=== PATIENT | female | born 1995 | race Caucasian/White ===

== ENCOUNTER → 2016-08-07 | Outpatient (CLI) | payer BC ==
[2016-08-11 13:39] LABS: CHLAMYDIA TRACH RNA*** NOT DETECTED (NOT DETECTED); GC (NEIS GONORRHOEAE)RNA** NOT DETECTED (NOT DETECTED); TRICHOMONAS VAGINALIS RNA** NOT DETECTED (NOT DETECTED)
== END | disposition home or self-care (01) ==
LOC: C.LABSPEC 16:54
PROVIDERS: ATTEND Obstetrics & Gynecology
DX: N94.9 Unspecified condition associated with female genital organs and menstrual cycle (principal)

== ENCOUNTER 2016-12-23 22:43 | Emergency (ER) | payer BC ==
[~2016-12-23] VITALS: Ht 160 cm; Wt 45.9 kg
[2016-12-23 22:45] VITALS: TEMP 36.9; Ht 160 cm; Wt 45.9 kg
[2016-12-23] MEDS ORDERED: LIDOCAINE HCL 2% VISC SOLN 20 ML UDC PO STA (22:58)
[2016-12-23] MEDS ORDERED: ALUMINUM/MAGNESIUM SUSP 30 ML UDC PO STA (22:58)
[2016-12-23 23:16] LABS: BASO % 0.4 %; BASO ABS # 0.03 K/uL (0-0.2); COMPLETE YES; EOS % 4.1 %; HEMATOCRIT 41.5 % (37-47); IG% 0.1 %; LYMPH % 45.1 %; LYMPH ABS # 3.23 K/uL (1.2-3.4); MEAN CELL VOLUME 91.4 fL (80-100); MEAN CORPUSCULAR HEMOGLOBIN 31.1 pg (25-34); MEAN PLATELET VOLUME 9.9 fL (7.4-10.4); NEUT % 38.3 %; PLATELET COUNT 239 K/uL (130-400); RED BLOOD COUNT 4.54 M/uL (4.2-5.4); WHITE BLOOD COUNT 7.16 K/uL (4.8-10.8)
[2016-12-23 23:27] LABS: INR 0.9 (0.9-1.1); PARTIAL THROMBOPLASTIN RATIO 1.1; PROTHROMBIN TIME (PATIENT) 10.1 SECONDS (9.0-12.0)
[2016-12-23 23:28] LABS: POINT OF CARE TROPONIN I < 0.030 ng/ml (0-0.045)
[2016-12-23 23:34] LABS: BUN/CREATININE RATIO 15.8 (10-20); CALCIUM 9.3 mg/dl (8.5-10.1); CREATININE 0.72 mg/dl (0.60-1.20); POTASSIUM 3.7 mmol/L (3.5-5.1)
[2016-12-23] MEDS ORDERED: KETOROLAC TROMETHAMINE 30 MG/ML VIAL IV STA (23:50)
--- NOTE | 2016-12-24 00:45 | DIAGNOSTIC IMAGING REPORT ---
TWO VIEW CHEST CLINICAL HISTORY: Atypical chest pain. FINDINGS: PA and lateral chest radiographs are obtained. No prior studies are available for comparison at the time of dictation. The cardiomediastinal silhouette is unremarkable. The lungs and pleural spaces are clear. There is no pneumothorax. The bony thorax appears intact. There is mild spinal scoliosis. IMPRESSION: No active disease in the chest. Electronically signed by: Alfa Pyle M.D. 12/24/2016 12:43 AM Dictated Date/Time: 12/24/2016 12:43 AM
[2016-12-24 00:55] VITALS: BP 99/62; PULSE 84; O2SAT 99
--- NOTE | 2016-12-24 01:32 | EMERGENCY ROOM VISIT NOTE ---
History Report prepared by Velvet: Massimo Osborne Under the Supervision of: Dr. Jamie Odom M.D. First contact with patient: 22:49 Chief Complaint: CHEST PAIN Stated Complaint: CHEST PAIN,BURNING,HEAVY FEELING,SOB History of Present Illness The patient is a 21 year old female who presents to the Emergency Room with complaints of constant chest pain for the past few days that goes into her throat. The patient states that it feels like a constant pressure and a burning that comes and goes. She additionally states that she feels like there is fluid in her throat, though when she coughs nothing comes up, and she states that she has had a cough for three days. She states that laying back makes it worse, and eating does not change it. The patient states that she is a little short of breath. She states that she is unsure of having a fever, and she denies any abdominal pain, urinary symptoms, vaginal discharge, and pain or swelling in her legs. The patient states that she is not , does not take control, and has no recent long travels or surgeries or periods of immobility. She states that her uncle had a blood clot in his leg, though she is unsure if it was due to a genetic disorder. Additionally, she states that she does not smoke. Source of History: patient Onset: a few days ago Position: chest Quality: pressure, burning Timing: constant Modifying Factors (Worsening): other (laying down) Associated Symptoms: + SOB, No abdominal pain, No urinary symptoms Review of Systems See HPI for pertinent positives & negatives. A total of 10 systems reviewed and were otherwise negative. Past Medical & Surgical Medical Problems: (1) No Known Active Medical Problems Family History Blood clots Social History Smoking Status: Never Smoker Marital Status: Occupation Status: employed Current/Historical Medications No Active Prescriptions or Reported Meds Allergies Coded Allergies: No Known Allergies (Unverified , 12/23/16) Physical Exam Vital Signs Date Time Temp Pulse Resp B/P (MAP) Pulse Ox O2 Delivery O2 Flow Rate FiO2 12/24/16 00:55 84 20 99/62 99 12/24/16 00:25 84 20 99/62 99 Room Air 12/23/16 23:20 99 12/23/16 23:04 Room Air 12/23/16 22:45 36.9 115 18 118/73 98 Room Air Physical Exam Constitutional: Vital signs reviewed. Eyes: Pupils are equal round reactive to light. Conjunctiva are noninjected. ENT: Pharynx is clear without erythema or exudate. Mucous membranes are moist. Neck supple without meningeal signs. Respiratory: Clear to auscultation bilaterally. Breath sounds are equal bilaterally. Cardiovascular: Regular rate and rhythm. No rubs or gallops. GI: Soft, nondistended and nontender. Bowel sounds are present. Musculoskeletal: Slight tenderness to palpation of her chest. No peripheral edema. No lower extremity tenderness. Integumentary: No cyanosis. Neurological: The patient is awake and alert. No focal deficits. Psychiatric: Normal affect. Medical Decision & Procedures ER Provider Diagnostic Interpretation: X-ray results as stated below per interpretation by me and the radiologist: TWO VIEW CHEST CLINICAL HISTORY: Atypical chest pain. FINDINGS: PA and lateral chest radiographs are obtained. No prior studies are available for comparison at the time of dictation. The cardiomediastinal silhouette is unremarkable. The lungs and pleural spaces are clear. There is no pneumothorax. The bony thorax appears intact. There is mild spinal scoliosis. IMPRESSION: No active disease in the chest. Electronically signed by: Alfa Pyle M.D. 12/24/2016 12:43 AM Dictated Date/Time: 12/24/2016 12:43 AM Laboratory Results 12/23/16 23:04 Red Blood Count 4.54, Mean Corpuscular Volume 91.4, Mean Corpuscular Hemoglobin 31.1, Mean Corpuscular Hemoglobin Concent 34.0, Mean Platelet Volume 9.9, Neutrophils (%) (Auto) 38.3, Lymphocytes (%) (Auto) 45.1, Monocytes (%) (Auto) 12.0, Eosinophils (%) (Auto) 4.1, Basophils (%) (Auto) 0.4, Neutrophils # (Auto ) 2.74, Lymphocytes # (Auto) 3.23, Monocytes # (Auto) 0.86, Eosinophils # (Auto ) 0.29, Basophils # (Auto) 0.03 12/23/16 23:04 Test 12/23/16 22:58 12/23/16 23:04 12/23/16 23:09 White Blood Count 7.16 K/uL (4.8-10.8) Red Blood Count 4.54 M/uL (4.2-5.4) Hemoglobin 14.1 g/dL (12.0-16.0) Hematocrit 41.5 % (37-47) Mean Corpuscular Volume 91.4 fL (80-100) Mean Corpuscular Hemoglobin 31.1 pg (25-34) Mean Corpuscular Hemoglobin Concent 34.0 g/dl (32-36) Platelet Count 239 K/uL (130-400) Mean Platelet Volume 9.9 fL (7.4-10.4) Neutrophils (%) (Auto) 38.3 % Lymphocytes (%) (Auto) 45.1 % Monocytes (%) (Auto) 12.0 % Eosinophils (%) (Auto) 4.1 % Basophils (%) (Auto) 0.4 % Neutrophils # (Auto) 2.74 K/uL (1.4-6.5) Lymphocytes # (Auto) 3.23 K/uL (1.2-3.4) Monocytes # (Auto) 0.86 K/uL (0.11-0.59) Eosinophils # (Auto) 0.29 K/uL (0-0.5) Basophils # (Auto) 0.03 K/uL (0-0.2) RDW Standard Deviation 40.7 fL (36.4-46.3) RDW Coefficient of Variation 12.1 % (11.5-14.5) Immature Granulocyte % (Auto) 0.1 % Immature Granulocyte # (Auto) 0.01 K/uL (0.00-0.02) Prothrombin Time 10.1 SECONDS (9.0-12.0) Prothromb Time International Ratio 0.9 (0.9-1.1) Activated Partial Thromboplast Time 28.7 SECONDS (21.0-31.0) Partial Thromboplastin Ratio 1.1 Anion Gap 8.0 mmol/L (3-11) Est Creatinine Clear Calc Drug Dose 88.8 ml/min Estimated GFR () 137.8 Estimated GFR (Non- 118.9 BUN/Creatinine Ratio 15.8 (10-20) Calcium Level 9.3 mg/dl (8.5-10.1) Bedside D-Dimer 295 ng/mlFEU (0-450) Bedside Troponin I < 0.030 ng/ml (0-0.045) Laboratory results as reviewed by me. Medications Administered Medications (Trade) Dose Ordered Sig/Stacie Route Start Time Stop Time Status Last Admin Dose Admin Lidocaine HCl (Viscous Lidocaine 2% Soln) 10 ml NOW STAT PO 12/23/16 22:58 12/23/16 23:00 DC 12/23/16 23:11 10 ML Al Hydroxide/Mg Hydroxide (Maalox Susp) 30 ml NOW STAT PO 12/23/16 22:58 12/23/16 23:00 DC 12/23/16 23:11 30 ML Ketorolac Tromethamine (Toradol Inj) 10 mg NOW STAT IV 12/23/16 23:50 12/23/16 23:51 DC 12/23/16 23:56 10 MG ECG Indication: chest pain Rate (beats per minute): 105 Rhythm: sinus tachycardia Findings: no ectopy, other (Non-specific St and T wave changes) Change: REPEAT EKG: Normal Sinus Rhythm, 85 bpm, no ischemia or ectopy ED Course 2248: The patient was evaluated in room C9. A complete history and physical exam was performed. 2258: Maalox Susp 30ml PO, Viscous Lidocaine 2% Soln 10ml PO 2348: I reevaluated the patient, and I discussed her test results with her, and she states that she is feeling better. Her heart rate was 85 bpm 2350: Toradol Inj 10mg IV 0058: I reevaluated the patient, and she states that she is feeling better. I recommended Prilosec and Zantac, and she is going to follow up with [facility]. She verbalized agreement of the treatment plan. She was discharged home. Medical Decision This is a 21-year-old female presents with chest pain. Differential diagnosis includes reflux disease, esophagitis, pleurisy, pulmonary embolism, pneumonia, bronchitis. I did perform a limited focused review of portions of the patient' s old chart on the electronic medical record. The patient has had no recent pertinent visits to this hospital. Blood Pressure Screening: Patient was found to have normal blood pressure on screening and does not require follow-up. Medication Reconciliation: I attest that I have personally reviewed the patient' s current medication list. I did evaluate the patient as noted above. The patient is presenting with symptoms that seem consistent with reflux disease. She states is worse when she lies down. She describes it as a pressure and burning sensation radiating into her throat. She has had it constantly for the past 3 days. IV access was established. The patient was placed on a continuous school bus monitor. I did treat patient with a GI cocktail and Toradol IV. I did order and personally review the patient's 12-lead EKG and chest x-ray as described above. I did repeat her twelve-lead EKG as she had some rate related changes and motion artifact. The second EKG was unremarkable as described above. There are no acute ischemic changes. I did order and review the patient's blood work as noted in the electronic medical record. D-dimer and troponin are both negative. I did discuss the test results with the patient. She is feeling better at this time. I did recommend she try either [id number] Prilosec or Zantac for her symptoms and to follow up closely with her doctor. She states she is establishing care with the [facility]. The patient was discharged in good condition. Impression Primary Impression: Acute chest pain Scribe Attestation The scribe's documentation has been prepared under my direct and personally reviewed by me in its entirety. I confirm that the note above accurately reflects all work, treatment, procedures, and medical decision making performed by me. Departure Information Dispostion Home / Self-Care Prescriptions No Active Prescriptions or Reported Meds Referrals No Doctor, Assigned (PCP) Forms HOME CARE DOCUMENTATION FORM, IMPORTANT VISIT INFORMATION Patient Instructions ED Chest Pain Atypical Unkn Cause, My [facility] Additional Instructions You have been examined and treated today on an emergency basis only. This is not a substitute for, or an effort to provide, complete comprehensive medical care. It is impossible to recognize and treat all injuries or illnesses in a single emergency department visit. It is therefore important that you follow up closely with a regular physician. Call as soon as possible for an appointment. Return for worsening symptoms or if you develop fever, vomiting, black or tarry stools, or any other concerning symptoms.
== END 2016-12-24 01:00 | disposition home or self-care (01) ==
LOC: C.EDB 22:44 → C.EDC 12-24 01:00
DX: R07.9 Chest pain, unspecified (principal)